=== PATIENT | female | born 1975 | race Caucasian/White ===

== ENCOUNTER → 2016-06-11 | Outpatient (CLI) | payer BC ==
--- NOTE | 2016-06-11 15:43 | XR ---
EXAMINATION TYPE: XR thoracic spine complete DATE OF EXAM ORDERED: 06/11/2016 2:59 PM HISTORY: Low back pain. COMPARISON: None. FINDINGS: Vertebral body height and alignment are maintained. There is mild hypertrophic spondylosis in the mid dorsal spine. Paraspinal soft tissues are normal. The pedicles are intact. IMPRESSION: 1. NO ACUTE OSSEOUS LESION. 2. MINIMAL DEGENERATIVE CHANGE.
--- NOTE | 2016-06-11 15:44 | XR ---
EXAMINATION TYPE: XR lumbosacral spine min 4V DATE OF EXAM ORDERED: 06/11/2016 2:59 PM HISTORY: Low back pain. COMPARISON: None. FINDINGS: There is a gentle dextroscoliosis with its apex at the thoracolumbar junction. Vertebral body height and alignment are maintained. There is no spondylolysis or spondylolisthesis. D isc spaces are maintained. Limited views of the facets are unremarkable. The pedicles are intact. IMPRESSION: 1. GENTLE DEXTROSCOLIOSIS. 2. NO SIGNIFICANT DEGENERATIVE CHANGE.
== END | disposition home or self-care (01) ==
LOC: RADXRMAIN 14:06
PROVIDERS: ATTEND Family Medicine
DX: M47.814 Spondylosis without myelopathy or radiculopathy, thoracic region (principal); M41.9 Scoliosis, unspecified; M54.5 Low back pain
CPT/HCPCS: 72072; 72110

== ENCOUNTER → 2016-07-13 | Outpatient (CLI) | payer BC ==
--- NOTE | 2016-07-13 22:24 | MR ---
EXAMINATION TYPE: MR tspine/lspine wo con DATE OF EXAM: 07/13/2016 5:38 PM COMPARISON: Thoracic and lumbar spine x-rays June 11, 2016. HISTORY: Mid and lower back pain/BLE radic x 1 year TECHNIQUE: Multiplanar, multisequence imaging of thoracic and the lumbar spine are performed without IV contrast. FINDINGS: T-SPINE: FINDINGS: Spinal cord shows normal course, caliber, and signal as it courses the thoracic spine. Tyrone tebral body heights and alignment are satisfactory. There is low T1 and T2 signal posterior T9-T10 di sc space felt to reflect calcification. Tiny posterior disc herniations are seen at T7-T8 and T8-T9 l evel minimally effacing anterior thecal sac on sagittal images. Bone marrow signal intensity is felt within normal limits. Small hemangioma seen at the posterior inferior T8 vertebral body. No significa nt spurring is seen. Review of the axial images confirms tiny right paracentral disc protrusion mildly effacing anterior t hecal sac on axial image 14 at T8-T9 level. There is mild facet degenerative changes and ligamentum flavum hypertrophy bilaterally at and lower t horacic levels from T9-T10 through T11-T12 levels. Spinal canal is preserved and bilateral neural for luis are patent. 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 L-SPINE: Sagittal images of the lumbar spine show vertebral body heights and alignment to appear satisfactory. There is disc desiccation L4-L5 and L5-S1 levels. Disc space heights are fairly well-maintained. Sma ll posterior disc herniations are seen at these levels on sagittal images. The conus medullaris is no rmal in position and signal ending at mid L1 vertebral body level. The bone marrow signal intensity is within normal limits. No significant spurring is seen. Axial images show the T12-L1, L1-L2, L2-L3, and L3-L4 levels all to appear within normal limits. Axial images at the L4-L5 level show central disc protrusion mildly effacing anterior thecal sac on a xial image 8, bilateral neural foramina are patent. Mild facet degenerative changes are present bilat erally at this level. Axial images at L5-S1 level show broad-based disc bulge with more prominent left foraminal disc protr usion effacing anterolateral thecal sac and inferior margin of left L5 nerve on axial image 3 and sa gittal image 3. Right-sided neural foramen shows mild narrowing. Mild facet degenerative changes are present bilaterally at this level. IMPRESSION: Multilevel degenerative changes in the lower lumbar spine as detailed above, eccentric di sc herniation L5-S1 level causes neural foraminal narrowing and appears to encroach on the left L5 ne rve. Clinical correlation advised.
== END | disposition home or self-care (01) ==
LOC: RADMRIMAIN 16:20
PROVIDERS: ATTEND Family Medicine
DX: M51.24 Other intervertebral disc displacement, thoracic region (principal); M47.814 Spondylosis without myelopathy or radiculopathy, thoracic region
CPT/HCPCS: 72146; 72148